=== PATIENT | male | born 1995 | race Caucasian/White ===

== ENCOUNTER → 2017-06-07 | Emergency (ER) | payer BC, SELFPAY | PROVIDERS: Emergency Provider Nurse Practitioner; Visit Provider Nurse Practitioner | DX: Z53.29 Procedure and treatment not carried out because of patient's decision for other reasons (principal) ==

== ENCOUNTER → 2021-06-22 08:33 | Outpatient (CLI) | payer BC, SELFPAY ==
--- NOTE | 2021-06-22 08:38 | US_ITS ---
FINAL REPORT CLINICAL HISTORY: ABD PAIN FINDINGS: Ultrasound images of the right upper quadrant were obtained. The liver parenchyma is normal in echogenicity. There is a large amount of stones with cholesterol stones in the gallbladder. The common duct is normal. Limited images of the right kidney are unremarkable. IMPRESSION: Large amount of sludge with cholesterol stones in the gallbladder. Reviewed, Interpreted and Dictated by Ernesto Hawley MD Transcribed by Chuy Melgar Authenticated by Ernesto Hawley MD on 06/22/2021 12:17:41 PM [facility]
== END ==
PROVIDERS: PCP Internal Medicine; Visit Provider Internal Medicine
DX: R10.11 Right upper quadrant pain (principal)
CPT/HCPCS: 76705

== ENCOUNTER → 2021-06-28 17:47 | Outpatient (CLI) | payer BC, SELFPAY ==
[2021-06-28 20:22] LABS: Alanine Aminotransferase 27 U/L (12-78); Albumin Level 4.9 g/dl (3.5-5.0); Alkaline Phosphatase 48 U/L (38-126); Anion Gap 13.3 mEq/L (5-15); Aspartate Amino Transferase 41 U/L (17-59); Bilirubin,Total 0.6 mg/dl (0.2-1.3); Blood Urea Nitrogen 17 mg/dl (9-20); Calcium 9.5 mg/dl (8.4-10.2); Carbon Dioxide 31 mmol/L (22.0-30.0); Chloride 100 mmol/L (98-107); Chol/HDL Ratio 2.4 (1-3.5); Cholesterol 156 mg/dl (140-200); Estimated Glomerular Filt Rate 72 ml/min (>60); GFR (African American) 87 ML/MIN (>60); Globulin 2.5 g/dL (1.3-3.2); Glucose 67 mg/dl (74-100); HDL Cholesterol 65 mg/dl (40-60); Potassium 4.3 mmoL/L (3.5-5.1); Sodium 140 mmol/L (136-145); Total Protein,Serum 7.4 g/dl (6.3-8.2); Triglycerides 67 mg/dl (30-150); VLDL Cholesterol 13 mg/dL (0-40)
[2021-06-28 20:33] LABS: Direct LDL Cholesterol 76.89 mg/dL (100-129)
== END ==
PROVIDERS: Visit Provider Internal Medicine
DX: R07.89 Other chest pain (principal); R03.0 Elevated blood-pressure reading, without diagnosis of hypertension; E78.5 Hyperlipidemia, unspecified
CPT/HCPCS: 80053; 80061

== ENCOUNTER → 2021-07-01 12:04 | Outpatient (CLI) | payer BC, SELFPAY ==
[2021-07-01 14:35] LABS: Strep Scrn Group A (Rapid) Negative (Negative)
== END ==
PROVIDERS: PCP Internal Medicine; Visit Provider Internal Medicine
DX: R50.9 Fever, unspecified (principal); J02.9 Acute pharyngitis, unspecified
CPT/HCPCS: 87275; 87276; 87430

== ENCOUNTER → 2021-07-04 15:08 | Outpatient (CLI) | payer BC, SELFPAY | PROVIDERS: Visit Provider Nurse Practitioner | DX: U07.1 COVID-19 (principal) | CPT/HCPCS: C9803; U0003; U0005 ==

== ENCOUNTER → 2021-07-20 09:35 | Outpatient (CLI) | payer BC, SELFPAY ==
--- NOTE | 2021-07-20 | CA_ITS ---
APPROVED REPORT Exam: Exercise Treadmill Technologist: Chelsea Huerta Ht: 6 ft 0 in Wt: 190 lbs BSA: 2.08 m2 HR: 74 bpm BP: 138/89 mmHg Indications: Atypical Chest Pain Stress Test Details Test: Ziyad HR Resting HR: 85 bpm Max Heart Rate (APMHR): 192.417639 bpm Max HR Achieved: 197 bpm Target HR (85% APMHR): 163.789874 bpm % of APMHR: 102.60 Recovery HR: 116 bpm BP Resting BP: 138.0/89.0 mmHg Max BP: 182.0/98.0 mmHg Recovery BP: 150.0/91.0 mmHg ECG Resting ECG: Normal sinus rhythm, LVH, ST depression inferiorly when standing. Clinical Exercise duration: 10:54 min Highest Stage Achieved: Exercise capacity: 12.8 METs Stress ECG Conclusion Patient exercised 10:54 on Ziyad Protocol. Test stopped due to shortness of air, leg fatigue. Symptoms: Shortness of air. No chest pain. Leg fatigue. Arrhythmias/Ectopy: None ST-T Changes: Exaggeration of baseline ST abnormalities in inferior leads with approximately 1.[address] depression. Conclusion: Positive GXT for ischemia with decreased specificty due to baseline abnormalities when standing. GXT only (no images). Test Summary REST . . . . . . . Sitting REST . . . . . . . Standing REST 03:34 0.0 0.0 85 . 138/ 89 . . Stage 1 01:00 0.0 0.0 68 . . . . Stage 1 . . . . . . . Protocol changed to Manual Treadmill Stage 1 02:00 0.0 0.8 88 . . . . Stage 1 . . . . . . . Protocol changed to Ziyad Stage 1 03:00 10.0 1.7 114 . . . . Stage 2 01:00 12.0 2.5 128 . . . . Stage 2 02:00 12.0 2.5 141 . . . . Stage 2 03:00 12.0 2.5 143 . 160/ 88 . . Stage 3 01:00 14.0 3.4 166 . . . . Stage 3 02:00 14.0 3.4 175 . . . . Stage 3 03:00 14.0 3.4 182 . 164/ 70 . . Stage 4 01:00 16.0 4.2 191 . . . . Stage 4 01:54 16.0 4.2 197 . . . Stop exercise at 10:54 RECOVERY 01:00 0.0 0.0 176 . 156/ 88 . . RECOVERY 02:00 0.0 0.0 135 . 156/ 88 . . RECOVERY 03:00 0.0 0.0 122 . 182/ 98 . . RECOVERY 04:00 0.0 0.0 120 . 182/ 98 . . RECOVERY 05:00 0.0 0.0 120 . 150/ 93 . . RECOVERY 06:00 0.0 0.0 117 . 150/ 93 . . RECOVERY 07:00 0.0 0.0 119 . 150/ 91 . . RECOVERY 07:20 0.0 0.0 115 . 150/ 91 . . Electronically signed by : Jeremy Jauregui MD 07/26/2021 12:27:51
== END ==
PROVIDERS: PCP Internal Medicine; Visit Provider Internal Medicine
DX: R07.89 Other chest pain (principal)
CPT/HCPCS: 93017

== ENCOUNTER → 2021-08-02 11:39 | Outpatient (CLI) | payer BC, SELFPAY ==
--- NOTE | 2021-08-02 | CA_ITS ---
APPROVED REPORT Exam: Exercise Treadmill Technologist: Chelsea Huerta Ht: 6 ft 0 in Wt: 190 lbs BSA: 2.08 m2 HR: 83 bpm BP: 144/90 mmHg Indications: Abnormal stress Medical History Medications: No known home meds,,,,, Stress Test Details Test: Ziyad HR Resting HR: 99 bpm Max Heart Rate (APMHR): 192 bpm Max HR Achieved: 201 bpm Target HR (85% APMHR): 163 bpm % of APMHR: 105 Recovery HR: 113 bpm BP Resting BP: 144.0/90.0 mmHg Max BP: 180.0/80.0 mmHg Recovery BP: 135.0/85.0 mmHg ECG Resting ECG: Normal sinus rhythm, rightward axis, ST-T abnormalities inferiorly and laterally upon standing. Clinical Exercise duration: 11:00 min Highest Stage Achieved: Exercise capacity: 12.8 METs Stress ECG Conclusion Patient exercised 11:00 on Ziyad Protocol. Symptoms: No chest pain. Arrhythmias/Ectopy: Occasional PAC in recovery. Rare PVC. ST-T Changes: Exaggeration of baseline abnormalities in the inferior leads. Conclusion: negative GXT Myoview images reported separately. Test Summary RECOVERY 06:00 0.0 0.0 136 . 164/ 92 . . REST . . . . . . . Standing REST 02:58 0.0 0.0 99 . 144/ 90 . . Stage 1 01:00 10.0 1.7 120 . . . . Stage 1 02:00 10.0 1.7 123 . . . . Stage 1 03:00 10.0 1.7 130 . 170/ 90 . . Stage 2 01:00 12.0 2.5 140 . . . . Stage 2 02:00 12.0 2.5 155 . . . . Stage 2 03:00 12.0 2.5 162 . 176/ 80 . . Stage 3 01:00 14.0 3.4 179 . . . . Stage 3 02:00 14.0 3.4 185 . . . . Stage 3 03:00 14.0 3.4 189 . 180/ 80 . . Stage 4 . . . . . . . Myoview Injected Stage 4 01:00 16.0 4.2 197 . . . . Stage 4 02:00 16.0 4.2 200 . . . Stop exercise at 11:00 RECOVERY 01:00 0.0 0.0 188 . 174/ 70 . . RECOVERY 02:00 0.0 0.0 161 . 174/ 70 . . RECOVERY 03:00 0.0 0.0 138 . 174/ 70 . . RECOVERY 04:00 0.0 0.0 123 . 179/ 86 . . RECOVERY 05:00 0.0 0.0 132 . 164/ 92 . . RECOVERY 06:00 0.0 0.0 136 . 164/ 92 . . RECOVERY 07:00 0.0 0.0 130 . 164/ 95 . . RECOVERY 08:00 0.0 0.0 123 . 164/ 95 . . RECOVERY 09:00 0.0 0.0 115 . 164/ 95 . . RECOVERY 09:39 0.0 0.0 115 . 135/ 85 . . Electronically signed by : Vijay Brand MD 08/02/2021 19:41:04
--- NOTE | 2021-08-02 11:45 | NM_ITS ---
APPROVED REPORT Exam: Nuclear Stress Test Indication: Chest pain, Abnormal GXT, Family history Patient Location: Outpatient Stress Tech: Chelsea Huerta NM Tech:Francine Patel, ARRT, RT (R)(N) Ht: 6 ft 3 in Wt: 190 lbs HR: 83 bpm BP: 144/90 mmHg BSA: 2.15 m2 BMI: 23.7 History: Chest pain, Abnormal GXT, Family history Procedure: Patient exercised on Ziyad protocol 11:00 minutes and sec, resting heart rate 83 bpm, resting blood pressure 144/90 mmHg, with exercise maximum heart rate achived was 201 bpm which is 105 % of the maximum predicted heart rate and blood pressure was 180/80 mmHg. Test was stopped due to leg fatigue and SOA. Patient denied any complaint of chest pain. Patient has Good exercise capacity, achieved 12.8 METs of workload on treadmill, the blood pressure response to exercise was Hypertensive. Electrocardiogram Resting electrocardiogram shows sinus rhythm, with exercise there is less than 1.[address] segment depression noted from the baseline EKG in the lateral leads. The EKG portion of the exercise Myoview is nondiagnostic. Cardiac Stress and Resting SPECT Images: Cardiac Stress and Resting SPECT images were obtained using technetium 99m Myoview 30.9 mCi stress and 10.40 mCi at rest. Gated SPECT for analysis of segmental wall motion and calculation of the ejection fraction also done. Cardiac stress and resting SPECT images show uniform myocardial activity without segmental perfusion abnormality, however left ventricle is dilated both stress and rest, computer derived ejection fraction is 40% with left ventricular global hypokinesis. Right ventricle is normal size and contractility. Conclusion: 1. The EKG portion of the exercise Myoview is negative for ischemia, patient has good exercise capacity achieved 12.8 mets of workload on treadmill, the blood pressure response to exercise was adequate, test was stopped due to shortness of breath patient did not complain of chest pain. 2. No scintigraphic evidence of reversible ischemia seen, however left ventricle appears to be dilated with stress and rest, compared right ejection fraction is 40% and left ventricle appears to be globally hypokinetic. 3. Abnormal exercise Myoview study due to low ejection fraction noted on the gated SPECT. Electronically signed by : Vijay Brand MD 08/02/2021 19:54:23
== END ==
PROVIDERS: PCP Internal Medicine; Visit Provider Internal Medicine
DX: R94.39 Abnormal result of other cardiovascular function study (principal)
CPT/HCPCS: 78452; 93017; A9502

== ENCOUNTER → 2022-04-11 10:14 | Outpatient (CLI) | payer BC, SELFPAY ==
--- NOTE | 2022-04-11 10:17 | US_ITS ---
FINAL REPORT CLINICAL HISTORY: L UQ PAIN FINDINGS: Sonographic images of the abdomen were obtained. The liver has an unremarkable appearance with normal echogenicity. There is sludge within the gallbladder without evidence of gallstones. There is no evidence of biliary ductal dilatation. The common hepatic duct measures 4 mm, which is within normal limits. The pancreas is partially obscured. The spleen size is normal. The right kidney measures 11.8 cm in length. The left kidney measures 11.8 cm in length. There is normal renal echogenicity. There is no evidence of hydronephrosis. The aorta has an unremarkable appearance. Limited images of the inferior vena cava are unremarkable. IMPRESSION: Unremarkable abdominal ultrasound with no acute abnormality identified. Reviewed, Interpreted and Dictated by Cortes Mills III, MD Transcribed by Melanie Huff Authenticated and [facility]
== END ==
PROVIDERS: PCP Internal Medicine; Visit Provider Internal Medicine
DX: R10.12 Left upper quadrant pain (principal)
CPT/HCPCS: 76700

== ENCOUNTER → 2022-06-21 08:50 | Outpatient (CLI) | payer BC, SELFPAY ==
--- NOTE | 2022-06-21 08:54 | XR_ITS ---
FINAL REPORT CLINICAL HISTORY: shoulder pain FINDINGS: Left shoulder Three views were obtained. There is no acute fracture or dislocation. The joint spaces appear normal. No soft tissue abnormality is identified. IMPRESSION: No acute process. Reviewed, Interpreted and Dictated by Mo Johnson MD Transcribed by Adrienne Younger Authenticated and . [facility]
== END ==
PROVIDERS: PCP Internal Medicine; Visit Provider Orthopaedic Surgery
DX: M25.512 Pain in left shoulder (principal)
CPT/HCPCS: 73030

== ENCOUNTER → 2023-01-17 12:47 | Outpatient (CLI) | payer BC, SELFPAY ==
--- NOTE | 2023-01-17 12:52 | XR_ITS ---
FINAL REPORT CLINICAL HISTORY: lt knee pain, hx of basketball injuries FINDINGS: LEFT KNEE SERIES Three views of the left knee were obtained. There is no acute fracture or dislocation. There is a questionable chronic fracture of the proximal fibula. The joint spaces are preserved. There is no soft tissue abnormality. IMPRESSION: No acute bony abnormality. Reviewed, Interpreted and Dictated by Cortes Mills III, MD Transcribed by Ban Morocho Authenticated and [facility]
== END ==
PROVIDERS: PCP Internal Medicine; Visit Provider Orthopaedic Surgery
DX: M25.562 Pain in left knee (principal)
CPT/HCPCS: 73562